=== PATIENT | male | born 1965 | race African-American/Black ===

== ENCOUNTER 2016-09-05 20:38 | Emergency (ER) | payer BC ==
[~2016-09-05] VITALS: Ht 175.3 cm; Wt 80.5 kg
[~2016-09-05 20:38] MED LIST: HYDR-906 PO; IBUP-1542 PO; tylenol#3
[2016-09-05 20:45] VITALS: Ht 175.3 cm; Wt 80.5 kg
[2016-09-05] MEDS ORDERED: KETOROLAC 30 MG INJ IM STA (21:35)
--- NOTE | 2016-09-05 21:35 | ERD ---
ER Documentation Chief Complaint Date/Time DATE: 09/05/16 TIME: 21:25 Chief Complaint Pt reports falling from ladder and injuring L ankle HPI 51 y/o male presents to ED for left ankle injury and pain. Stated that he fell off a ladder (about 7 feet) while fixing the ceiling in his house. Landed in his left foot and rolled his ankle. This happened at around 6 PM. Unable to walk after the injury. Denies headache, head injury, loss of consciousness, dizziness, blurry vision, changes in vision, photophobia, facial pain, ear pain, throat pain, difficulty swallowing, neck pain, shoulder pain, chest pain, cough, hemoptysis, abdominal pain, back pain, back injury, hip pain, bilateral knee pain, loss of appetite, nausea, vomiting, hematochezia, diarrhea, constipation, urinary symptoms, bladder and bowel incontinences, numbness or tingling sensation, recent travel, recent exposure to illness, recent antibiotic use in the last 3 months, fever, chills. Allergy: NKA PMH: Glaucoma Medications: Surgery: Denies. Family history: Denies. Primary Social History: Not working at this time. Quit smoking cigarettes 3 years ago. Denies use of alcohol, use of illegal drugs. ROS All systems reviewed and are negative except as per history of present illness. Medications Home Meds Active Scripts Hydrocodone/Acetaminophen ([place] 5-325 Tablet) 1 Each Tablet, 1 TAB PO Q6H Y for PAIN, #15 TAB Prov:NARCISO KNOWLES C 05/13/16 Ibuprofen* (Motrin*) 600 Mg Tab, 600 MG PO Q6, #30 TAB Prov:ELENICAMRONNARCISO C 05/13/16 Reported Medications [tylenol#3] No Conflict Check 09/02/11 Allergies Allergies: Coded Allergies: No Known Allergy (Unverified , 09/05/16) PMhx/Soc History of Surgery: No Anesthesia Reaction: No Hx Neurological Disorder: No Hx Respiratory Disorders: No Hx Cardiac Disorders: No Hx Psychiatric Problems: No Hx Miscellaneous Medical Probl: No Hx Alcohol Use: No Hx Substance Use: No Hx Tobacco Use: No Smoking Status: Unknown if ever smoked Physical Exam Vitals Vital Signs Date Time Temp Pulse Resp B/P Pulse Ox O2 Delivery O2 Flow Rate FiO2 09/05/16 20:45 98.7 109 18 143/88 97 Physical Exam CONSTITUTIONAL: Well-appearing; well-nourished; in no apparent distress. HEAD: Normocephalic; atraumatic. EYES: Conjunctiva clear, sclera non-icteric, EOM intact. PERRL Ears: Hearing intact. EACs clear, TMs non-bulging, non-inflamed, translucent & mobile, ossicles normal appearance, No obstructions, no erythema, no discharges Nose: No obstructions. No polyps. No external lesions. Mucosa non-inflamed. No external lesions, septum and turbinates normal. No rhinorrhea. No discharges. Frontal sinus is non-tender to palpation. Maxillary sinus is non-tender to palpation. MOUTH: Moist mucous membranes, no lesion, no obstructions, no vesicles, no thrush, patent airway Throat: Uvula in midline. Right tonsil is +1 with no erythema, no exudate. Left tonsil is +1 with no erythema, no exudate. Tolerating secretions well. Good gag reflex. Patent airway. Neck: Supple, without lesions, bruits, or adenopathy. No mass. Thyroid non- enlarged and non-tender to palpation. CHEST: Symmetrical chest. Respirations even and not labored. No retractions noted. CARDIOVASCULAR: Normal S1, S2. RRR. No murmurs, gallops. RESPIRATORY: Normal chest excursion with respiration; breath sounds clear and equal bilaterally; no wheezes, rhonchi, or rales. Breathing even and unlabored. Speaking in clear, full, and complete sentences w/ ease. ABDOMEN: Normal bowel sounds normal. Soft, round, non-distended, non-guarding, no tenderness, no rebound, no organomegaly, no masses, no pulsating abdominal mass. No hernia. No peritoneal signs. : No CVA tenderness. BACK: Symmetrical shoulder. Spine is midline without deformity, tenderness. No evidence of trauma or deformity. PELVIS: Stable pelvis. No evidence of trauma or deformity. MUSCULOSKELETAL: No misalignment, crepitation, defects, tenderness masses, effusions, decreased range of motion, instability, atrophy or abnormal strength or tone in the head, neck, spine, ribs, pelvis or extremities except left lateral malleolus area has tenderness with mild swelling/deformity without discoloration. Distal pedal pulse is normal. Circulation sensation is intact. No neurovascular deficits. Left knee is unremarkable. Bilateral hips are unremarkable. Right lower extremity is unremarkable. Bilateral upper extremities unremarkable. Good range of motion of neck and spine without difficulty/discomfort/tenderness. No calf tenderness. NEUROVASCULAR: Distal pulses are present. Pedal pulse are present, equal, and normal. Capillary refills are < 2 seconds. NEUROLOGIC: Alert and oriented x4. Speaks full and clear sentences. Cranial Nerves II-XII normal. Sensation to pain, touch, and proprioception normal. Grossly unremarkable. No neurologic deficits. Romberg test is negative. PSYCHOLOGICAL: The patients mood and manner are appropriate. No hallucinations , delusions. Not SI. Not HI. Has the capacity to decide for self SKIN: Normal for age and ethnicity; warm; dry; good turgor; no apparent lesions or exudates. No rashes, hives, discoloration. Intact. Results 24 hrs Current Medications Medications (Trade) Dose Ordered Sig/Norman Route PRN Reason Start Time Stop Time Status Last Admin Dose Admin Ketorolac Tromethamine (Toradol) 30 mg ONCE STAT IM 09/05/16 21:35 09/05/16 21:37 DC 09/05/16 21:54 Procedures/MDM Examination: MUSCULOSKELETAL: No misalignment, crepitation, defects, tenderness masses, effusions, decreased range of motion, instability, atrophy or abnormal strength or tone in the head, neck, spine, ribs, pelvis or extremities except left lateral malleolus area has tenderness with mild swelling/deformity without discoloration. Distal pedal pulse is normal. Circulation sensation is intact. No neurovascular deficits. Left knee is unremarkable. Bilateral hips are unremarkable. Right lower extremity is unremarkable. Bilateral upper extremities unremarkable. Good range of motion of neck and spine without difficulty/discomfort/tenderness. No calf tenderness. Disease process, medical treatment was explained to the patient and family member. They verbalized understanding and agreed with the diagnostic tests, medical treatment, and follow-up care. Radiology: X-ray of the left ankle. Impression: Cortical irregularity of the posterior calcaneus suggesting avulsion fracture of uncertain age. This may be chronic in nature and correlation with physical examination is recommended. No other evidence of fracture or dislocation. Marked collaterals periarticular soft tissue swelling. CT of spine lumbar. Impression:IMPRESSION: 1. No evidence of lumbar spine fracture. 2. Disk bulging at L3-4 causing bilateral foraminal stenosis without central canal narrowing. 3. Congenital variant transitional lumbosacral anatomy. Treatment: Toradol. Posterior splint left lower extremity. No neurovascular deficits prior to and after the application of splint. Crutches and crutch training was provided. Consultation: None. Differential diagnosis: Fracture versus contusion versus sprain Medical decision makin51 y/o male presents to ED for left ankle injury and pain. Stated that he fell off a ladder (about 7 feet) while fixing the ceiling in his house. Landed in his left foot and rolled his ankle. This happened at around 6 PM. Unable to walk after the injury. Patient's complaint, patient's history, my physical findings, diagnostic test results are consistent with my final diagnosis of superior calcaneus suggesting avulsion fracture of uncertain age left. I explained to the patient the disease process and that he needs to see an orthopedic doctor. He verbalized understanding. Re-evaluation: No neurovascular deficits. No neurological deficits. Medications prescribed are the following: [place]. Motrin. Patient and family member are made aware of the side effects and adverse reactions of the medications prescribed. Instructed on when to seek emergent and medical attention in case allergic/anaphylactic reactions or severe side effects and or adverse reactions to medications. Patient and family member verbalized understanding. Patient instructed Instructed to follow-up with his PCP in 24-48 hours. PCP to refer patient to orthopedic doctor in the next 24-48 hours. Instructed to Call 911 for chest pain, shortness of breath. Advised to come back here in ED as soon as possible for severity of symptoms which includes but not limited to: any new symptoms; shortness of breath/difficulty of breathing; cardiovascular changes; severe gastrointestinal symptoms; signs and symptoms of bleeding and or infection; signs of compartment syndrome/neurovascular changes; neurological changes/deficits. Patient and family member verbalized understanding. Upon discharge, patient is alert and oriented x 4, speaks full and clear sentences, denies pain, has no neurological deficits, has no neurovascular deficits, difficulty of breathing. Breathing even and unlabored. Lung sounds are clear to auscultation. Not in distress. Appears comfortable. Ambulatory with steady gait. Appears satisfied with care provided here in ED. Departure Diagnosis: Primary Impression: Fracture closed, calcaneus Encounter type: initial encounter Calcaneus location: body Fracture alignment: nondisplaced Laterality: left Qualified Code: S92.015A - Closed nondisplaced fracture of body of left calcaneus, initial encounter Additional Impression: Ankle injury Encounter type: initial encounter Laterality: left Qualified Code: S99.912A - Ankle injury, left, initial encounter Condition: Stable Additional Instructions: Follow-up with PCP in the next 24-48 hours. PCP to refer patient to orthopedic doctor in the next 24-48 hours for re-evaluation. JUVE THOMAS Sep 05, 2016 21:35
--- NOTE | 2016-09-05 22:56 | RADRPT ---
PROCEDURE: XR left Ankle. CLINICAL INDICATION: Trauma. Ankle pain. TECHNIQUE: AP, oblique and lateral views of the left ankle were performed. COMPARISON: None. FINDINGS: Irregularity of the posterior calcaneus raising the question avulsion fracture and fragment displace ment. This may be chronic in nature. Correlate with direct inspection and clinical exam. No other fracture or dislocation is identified. The distal fibula and tibia are intact. The talar dome is intact and ankle joint mortise well maintained. The remaining bones of the foot an d ankle are unremarkable. Marked lateral periarticular soft tissue swelling. IMPRESSION: 1. Cortical irregularity of the posterior calcaneus suggesting avulsion fracture of uncertain age. This may be chronic in nature and correlation with physical examination is recommended. 2. No other evidence of fracture or dislocation. 3. Marked collaterals periarticular soft tissue swelling. RPTAT:AAJJ Physician Nahed Date Time Electronically viewed and signed by Physician Nahed on 09/05/2016 22:55 KATELYNN/
--- NOTE | 2016-09-05 23:33 | RADRPT ---
PROCEDURE: CT Lumbar Spine without contrast. CLINICAL INDICATION: Status post fall from 9 feet latter. Post traumatic low back pain. TECHNIQUE: CT of the lumbar spine without contrast was performed. Axial images were obtained thro [facility] the lumbar spine and reformatted at 2.5 mm slice thickness. Coronal and sagittal images were ref ormatted. The CTDIvol = 13.12 mGy and DLP = 435.52 mGy-cm. COMPARISON: None available FINDINGS: Vertebral bodies: There is interval transitional anatomy is present at the lumbosacral junction with partial sacralization of L5 on the left, unilateral Castellvi type IIA with pseudoarthrosis of the left L5 transverse process with the left sacral ala. There is preservation of axial height at every level with no evidence of fracture. Bone architecture and mineralization are intact. Trace anterio r spondylosis at L4-1 of 45 is noted Conus medularis region: Normal in attenuation and determination estimated at the L1 level. T12-L1: No discogenic abnormality of significance is seen. There is no facet arthropathy. The centr al canal is patent. There is no evidence for foraminal stenosis. No posterior element fracture is e vident. L1-L2: No discogenic abnormality of significance is seen. There is no facet arthropathy. The ligamen que flava are normal in thickness. The central canal is patent. There is no evidence for foraminal stenosis. No posterior element fracture is evident. L2-L3: No discogenic abnormality of significance is seen. There is no facet arthropathy. The ligamen que flava are normal in thickness. The central canal is patent. There is no evidence for foraminal stenosis. No posterior element fracture is evident. L3-L4: Mild posterior annulus calcification with trace disk bulging but no evidence of disk protrusi on. There is no facet arthropathy. The ligamentum flava are normal in thickness. The central canal is patent. Disk bulging contributes to mild bilateral foraminal stenosis. No posterior element frac ture is evident. L4-L5: No discogenic abnormality of significance is seen. There is no facet arthropathy. The ligamen que flava are normal in thickness. The central canal is patent. There is no evidence for foraminal stenosis. No posterior element fracture is evident. L5-S1: No discogenic abnormality of significance is seen. Transitional anatomy is noted on the left. There is no facet arthropathy. The ligamentum flava are normal in thickness. The central canal is patent. There is no evidence for foraminal stenosis. No posterior element fracture is evident. Sacrum and sacroiliac joints: No evidence of fracture, the joints are unremarkable bilaterally. None spine related findings: No abnormalities are demonstrated. RPTAT:HJJR IMPRESSION: 1. No evidence of lumbar spine fracture. 2. Disk bulging at L3-4 causing bilateral foraminal stenosis without central canal narrowing. 3. Congenital variant transitional lumbosacral anatomy. Physician Mihir Date Time Electronically viewed and signed by Physician Mihir on 09/05/2016 23:33 JR/
[2016-09-06] MEDS ORDERED: IBUP800T25 PO (00:33)
[2016-09-06] MEDS ORDERED: HYDR-906 PO (00:33)
[2016-09-06 01:22] VITALS: BP 124/59; PULSE 79; RESP 16
== END 2016-09-06 01:23 | disposition home or self-care (01) ==
LOC: FTE 20:38
DX: S92.015A Nondisplaced fracture of body of left calcaneus, initial encounter for closed fracture (principal); W11.XXXA Fall on and from ladder, initial encounter; Y92.9 Unspecified place or not applicable
CPT/HCPCS: 29515; 72131; 73610; 96372; 99285; J1885

== ENCOUNTER 2016-11-11 17:30 | Emergency (ER) | payer BC ==
[~2016-11-11] VITALS: Wt 77.5 kg
[~2016-11-11 17:30] MED LIST changes: +IBUP800T25 PO
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
[2016-11-11] MEDS ORDERED: HYDROCODONE/APAP (5/325) TAB PO ONE (19:30)
--- NOTE | 2016-11-11 20:33 | RADRPT ---
PROCEDURE: XR Lumbar Spine. CLINICAL INDICATION: Low back pain. TECHNIQUE: AP, cone-down lateral, and lateral views of the lumbar spine were obtained. COMPARISON: None. FINDINGS: Congenital transitional anatomy at the lumbosacral junction is present with partial sacralization of L5 on the left Mineralization is within normal limits. Vertebral bodies are normal in height. No fracture is identified. Lumbar lordosis is preserved. No vertebral subluxation is seen. The inter vertebral discs are normal in height. Paraspinal contours are unremarkable. RPTAT:HJJR IMPRESSION: Transitional lumbosacral anatomy on the left, otherwise unremarkable three view series of the lumbar spine. Physician Mihir Date Time Electronically viewed and signed by Physician Mihir on 11/11/2016 20:33 JR/
--- NOTE | 2016-11-11 20:35 | RADRPT ---
PROCEDURE: XR left ankle. CLINICAL INDICATION: Medial left ankle pain TECHNIQUE: AP , oblique and lateral views of theleft ankle were performed. COMPARISON: 09/05/2016 FINDINGS: There is normal mineralization and alignment. Calcaneal fracture seen previously is incompletely uni tre. No new fracture is evident. The ankle mortis and talar dome are intact. The soft tissues are u nremarkable. There is no evidence for a radiopaque foreign body. RPTAT:HJJR IMPRESSION: 1. Unremarkable left ankle series without acute abnormality. 2. Incompletely healed calcaneus fracture not changed from 09/05/2016. Physician Mihir Date Time Electronically viewed and signed by Physician Mihir on 11/11/2016 20:34 JR/
--- NOTE | 2016-11-11 20:36 | RADRPT ---
PROCEDURE: XR Cervical Spine. CLINICAL INDICATION: Neck pain TECHNIQUE: AP, lateral, and odontoid views of the cervical spine were obtained. COMPARISON: None available FINDINGS: Mineralization is within normal limits. No fracture or osseous lesion is identified. Vertebral bod ies are normal in height. Cervical lordosis is preserved. No vertebral subluxation is seen. Inter vertebral discs are normal in height with mild anterior spondylosis at C4-5 and C5-6. Hypoplastic C 7 ribs are noted. Facet joints appear maintained. Prevertebral soft tissues, predental space and a tlantoaxial joint are unremarkable. RPTAT:HJJR IMPRESSION: 1. Mild anterior spondylosis at C4-5 and C5-6. 2. Hypoplastic C7 ribs slightly larger on the right. Physician Mihir Date Time Electronically viewed and signed by Physician Mihir on 11/11/2016 20:36 /
[2016-11-11] MEDS ORDERED: NAPR-260 PO (20:39)
[2016-11-11] MEDS ORDERED: HYDR-906 PO (20:39)
== END 2016-11-11 20:46 | disposition home or self-care (01) ==
LOC: FTE 17:30
DX: M54.9 Dorsalgia, unspecified (principal); Z04.1 Encounter for examination and observation following transport accident
CPT/HCPCS: 72040; 72100; 73610; 99284; Z7610

== ENCOUNTER 2018-01-29 19:21 | Emergency (ER) | END 2018-01-29 22:48 | disposition home or self-care (01) ==